=== PATIENT | female | born 1995 ===

== ENCOUNTER 2019-01-28 17:47 | Emergency (ER) | payer OTHER ==
[2019-01-28 17:53] VITALS: BP 127/75; PULSE 98; RESP 18; TEMP 98.3; O2SAT 100; BMI 55.6
--- NOTE | 2019-01-28 18:23 | ED PDOC ---
HPI: Trauma/Fall - HPI Time Seen by Provider: 01/28/19 18:08 Chief Complaint (Nursing): Lower Extremity Problem/Injury Chief Complaint (Provider): Lower Extremity Problem/Injury History Per: Patient History/Exam Limitations: no limitations Onset/Duration Of Symptoms: Sudden Onset Injury Occurred (Timing): Today @ (1300) Additional Complaint(s): 23 year old female with no significant medical history, presents to the emergency department for an evaluation of fall injury that occurred around 1300 earlier today. Patient states she was walking when her left knee gave out then proceeded to roll her right ankle. She reports numbness sensation to affected ankle and heard her knee "pop" as she was exiting her vehicle upon arrival to ED. Of note, patient states she had a prior injury to her right ankle approximately 1 -2 months ago but has not followed up with a specialist, thus far. Patient reports pain is worse with movement and denies taking pain medication prior to arrival or other further complaints. PCP: Dr. Eva Fried Past Medical History Reviewed: Historical Data, Nursing Documentation, Vital Signs Vital Signs: Last Vital Signs Temp 98.3 F 01/28/19 17:52 Pulse 98 H 01/28/19 17:52 Resp 18 01/28/19 17:52 BP 127/75 01/28/19 17:52 Pulse Ox 100 01/28/19 17:52 - Medical History PMH: No Chronic Diseases - Surgical History Surgical History: - Family History Family History: States: Unknown Family Hx - Allergies Allergies/Adverse Reactions: Allergies Allergy/AdvReac Type Severity Reaction Status Date / Time No Known Allergies Allergy Verified 01/28/19 17:54 Review of Systems ROS Statement: Except As Marked, All Systems Reviewed And Found Negative Musculoskeletal: Positive for: Leg Pain (left knee), Foot Pain (right ankle) Neurological: Positive for: Numbness Physical Exam - Reviewed Nursing Documentation Reviewed: Yes Vital Signs Reviewed: Yes - Physical Exam Appears: Positive for: Well, Non-toxic, No Acute Distress Pulses-Dorsalis Pedis (L): 2+ Pulses-Dorsalis Pedis (R): 2+ Extremity: Positive for: Normal ROM (right toes and left knee), Tenderness (right inner and outer malleolus; left knee with ecchymosis), Swelling (right inner and outer malleolus with warmth on palpation). Negative for: Deformity (left knee or right ankle), Other (ecchymosis of right ankle) Neurological/Psych: Positive for: Awake, Alert, Oriented. Negative for: Motor/Sensory Deficits - Laboratory Results Urine POC: Negative - ECG O2 Sat by Pulse Oximetry: 100 (RA) Pulse Ox Interpretation: Normal Medical Decision Making Medical Decision Making: Time: 1818 Initial Plan: imaging and pain control initiated. * Urine * Motrin PO * XR right ankle Time: 1913 --XR right ankle: interpreted by provider. (-) fractures or other abnormalities. Time: 1919 --Upon provider reevaluation, patient is medically stable and requires no further treatment in the ED at this time. Findings and plan were discussed with patient who verbalizes understanding. Patient will be discharged home with POLY bandages and aircast applied to right ankle then advised to follow up with an orthopedist. Counseling was provided and all questions were answered regarding diagnosis. There is agreement to discharge plan. Return precautions discussed. Clinical Impression: ankle sprain Scribe Attestation: Documented by Dalia Aguirre, acting as a scribe for Maranda Ferreira APN. Provider Scribe Attestation: All medical record entries made by the Scribe were at my direction and personally dictated by me. I have reviewed the chart and agree that the record accurately reflects my personal performance of the history, physical exam, medical decision making, and the department course for this patient. I have also personally directed, reviewed, and agree with the discharge instructions and disposition. Disposition - Clinical Impression Clinical Impression: Ankle sprain - Patient ED Disposition Is Patient to be Admitted: No - Disposition Referrals: Kay Owen MD [Staff Provider] - Disposition: Routine/Home Disposition Time: 19:00 Condition: GOOD Instructions: Ankle Sprain (DC) Print Language: AMHARIC - POA Present On Arrival: None
--- NOTE | 2019-01-29 08:51 | RAD ---
Date of service: 01/28/2019 PROCEDURE: Right Ankle Radiographs. HISTORY: fall/ ankle swelling COMPARISON: None available. TECHNIQUE: 3 views obtained. FINDINGS: BONES: No acute fracture. JOINTS: Ankle mortise maintained. Talar dome intact SOFT TISSUES: Lateral malleolar soft tissue swelling. OTHER FINDINGS: None. IMPRESSION: Lateral malleolar soft tissue swelling without demonstrated fracture or dislocation.
== END 2019-01-28 19:41 | disposition home or self-care (01) ==
LOC: H.ER 17:47
DX: S93.401A Sprain of unspecified ligament of right ankle, initial encounter (principal); W18.30XA Fall on same level, unspecified, initial encounter